=== PATIENT | female | born 1950 | race Two or more races ===

== ENCOUNTER → 2018-12-15 | Emergency (ER) | payer MEDICARE, OTHER ==
[~2018-12-15] VITALS: Ht 157.5 cm; Wt 78.5 kg
[~2018-12-15] MED LIST: ASPIRIN EC81 MG PO; DICLOFENAC SODI75 MG PO; ESTRACE0.5 MG VAGINAL; GLIPIZIDE ER10 MG PO; LISINOPRIL20 MG PO; METFORMIN HCL1000 MG PO; MULTI VITAMIN1 EACH PO; NORCO 5-325 TA1 EACH PO; NYSTATIN1 EAC1 TP; OMEGA 3 1,0001 EACH PO; SYSTANE GEL10 GM; VITAMIN D35000 UNIT PO
== END ==
LOC: ED 20:51
DX: M54.2 Cervicalgia (principal); E11.9 Type 2 diabetes mellitus without complications; Z79.84 Long term (current) use of oral hypoglycemic drugs; Z79.899 Other long term (current) drug therapy
CPT/HCPCS: 71045; 72125; 96372; 99284-25; J1885

== ENCOUNTER 2023-05-04 14:03 | Emergency (ER) | payer MEDICARE, OTHER ==
[~2023-05-04] VITALS: Ht 157.5 cm; Wt 76.2 kg
[2023-05-04 14:44] LABS: BASOPHILS 0.6 % (0-2); EOSINOPHILS 0.1 % (0-6); HEMATOCRIT 41.3 % (35.0-50.0); HEMOGLOBIN 13.7 g/dL (12.0-18.0); LYMPHOCYTES 4.1 % (24-44); MCH 30.4 (27-36); MCHC 33.1 g/dl (30-36); MCV 91.8 fl (81-99); NEUTROPHILS 90.2 % (39-80); PLATELET COUNT 218 K/uL (140-440); RDW 13.1 (10.5-15.0)
[2023-05-04 14:59] LABS: ALBUMIN 3.6 g/dL (3.4-5.0); ALBUMIN/GLOBULIN RATIO 0.92 (1.1-2.4); ANION GAP 20.6 (7-21); BILIRUBIN, TOTAL 0.9 ng/dL (0.2-1.0); BUN/CREATININE RATIO 16.54 (6.0-28.6); CALCIUM 9.3 mg/dL (8.5-10.1); CREATININE, SERUM 1.33 mg/dL (0.55-1.02); POTASSIUM 4.6 mmol/L (3.5-5.1); PROTEIN, TOTAL 7.5 g/dL (6.4-8.2)
[2023-05-04 15:28] LABS: BILIRUBIN, URINE NEGATIVE (negative); BLOOD/HGB, URINE LARGE (Negative); KETONE, URINE >=80 (Negative); LEUK ESTERASE, URINE TRACE (negative); NITRITE, URINE NEGATIVE (negative); PH, URINE 5.5 (5-7)
[2023-05-04 15:36] LABS: WHITE BLOOD CELLS, URINE >50 /HPF (0-5)
[2023-05-04 15:37] LABS: BACTERIA, URINE RARE /hpf (negative); CASTS, URINE NONE SEEN \\lpf; COLLECTION TYPE, URINE CLEAN CATCH; CRYSTALS, URINE NONE SEEN (0-1+); EPITHELIAL CELLS, URINE SQUAMOUS 1+ /lpf (0-1+); REFLEX CULTURE, URINE Yes (No)
[2023-05-04 16:57] LABS: LACTIC ACID, BLOOD 2.3 mmol/L (0.4-2.0)
[2023-05-04 17:20] LABS: INFLUENZA B NAA NEGATIVE (NEGATIVE); RESPIRATORY SYNCYTIAL VIR NAA NEGATIVE (NEGATIVE)
[2023-05-04 20:30] VITALS: BP 109/63
--- NOTE | 2023-05-04 22:29 | EKG ---
[facility] [address] [facility] [place] [address] Signed Sinus tachycardia Low voltage QRS Possible Inferior infarct , age undetermined Abnormal ECG No previous ECGs available Confirmed by Sasha Padilla MD () on 05/04/2023 10:29:49 PM Electronically Signed By: SASHA PADILLA MD 05/04/232228 PATIENT NAME: JASE ABURTONE CRISTIANA Electrocardiogram DATE OF : 52 PHYSICIAN: SASHA PADILLA MD REPORT #: [id number] REPORT IS CONFIDENTIAL AND NOT TO BE RELEASED WITHOUT AUTHORIZATION
== END 2023-05-04 20:31 | disposition short-term general hospital (02) ==
LOC: ED 14:03
PROVIDERS: Emergency Medicine
DX: N13.6 Pyonephrosis (principal); K82.8 Other specified diseases of gallbladder; E11.9 Type 2 diabetes mellitus without complications; Z79.899 Other long term (current) drug therapy; Z20.822 Contact with and (suspected) exposure to COVID-19
CPT/HCPCS: 36415; 74176; 80053; 81001; 83605; 83690; 85025; 87040; 87502; 93005; 93010; C9803; J0696; J1885; J2405; J7030; U0002

== ENCOUNTER 2023-08-09 07:50 | Day surgery (SDC) | payer MEDICARE, OTHER ==
[2023-08-03 15:14] VITALS: BP 125/67
[~2023-08-09] VITALS: Ht 157.5 cm; Wt 72.7 kg
[~2023-08-09 07:50] MED LIST changes: +BAYER CHEWABLE81 MG PO; +CEFAZOLIN SODIUM 2 GM/20 ML SYR IV SCH; +CEFDINIR300 MG PO; +HEParin SOD (PORCINE) 5,000 UNIT/0.5 ML SYR SUB-Q SCH; +IBLOOD GLUCOSE TEST STRIP 1 EA TEST VI PRN; +LACTATED RINGER'S 1,000 ML IV SCH; +LIDOCAINE HCL 1% 5 ML SDV INJ ONE; +ONDANSETRON ODT8 MG PO; +PYRIDIUM200 MG PO
[2023-08-09 08:29] VITALS: BP 126/61
[2023-08-09] MEDS ORDERED: ZYRTEC10 M3 PO (08:37)
[2023-08-09] MEDS ORDERED: propofoL 200 MG/20 ML VIAL ONE (08:41)
[2023-08-09] MEDS ORDERED: SUGAMMADEX SODIUM 200 MG/2 ML ML ONE (08:41)
[2023-08-09] MEDS ORDERED: SUCCINYLCHOLINE IN 0.9% NACL 200 MG/10 ML SYRINGE ONE (08:41)
[2023-08-09] MEDS ORDERED: ondansetron HCL 4 MG/2 ML VIAL ONE (08:41)
[2023-08-09] MEDS ORDERED: fentaNYL citrate 100 MCG/2 ML VIAL ONE (08:41)
[2023-08-09] MEDS ORDERED: ROCURONIUM BROMIDE 50 MG/5 ML SYR ONE (08:41)
[2023-08-09] MEDS ORDERED: DEXAMETHASONE SOD PHOS 4 MG/ML VIAL ONE (08:41)
[2023-08-09] MEDS ORDERED: ACETAMINOPHEN 1,000 MG/100 ML VIAL ONE (08:41)
[2023-08-09] MEDS ORDERED: LIDOCAINE HCL 2% 20 MG/ML VIAL INJ ONE (08:42)
[2023-08-09] MEDS ORDERED: LIDOCAINE HCL 2% 5 ML SDV ONE (08:42)
[2023-08-09] MEDS ORDERED: LACTATED RINGER'S 1,000 ML IV ONE (08:45)
[2023-08-09] MEDS ORDERED: SODIUM CHLORIDE 0.9% 60 ML IV ONE (09:09)
[2023-08-09] MEDS ORDERED: iopamidoL 30 ML VIAL ONE (09:09)
[2023-08-09] MEDS ORDERED: HYDROmorphone HCL 1 MG/ML SYR IV PRN (10:30)
[2023-08-09] MEDS ORDERED: ondansetron HCL 4 MG/2 ML VIAL IV PRN (10:30)
[2023-08-09] MEDS ORDERED: fentaNYL citrate 100 MCG/2 ML VIAL IV PRN (10:30)
[2023-08-09] MEDS ORDERED: NALOXONE HCL 0.4 MG SYR IV PRN (10:30)
[2023-08-09] MEDS ORDERED: IBLOOD GLUCOSE TEST STRIP 1 EA TEST VI PRN (10:30)
[2023-08-09] MEDS ORDERED: droPERidol 5 MG/2 ML VIAL IV PRN (10:30)
[2023-08-09] MEDS ORDERED: PROCHLORPERAZINE EDISYLATE 10 MG/2 ML VIAL IV PRN (10:30)
[2023-08-09] MEDS ORDERED: PHENYLEPHRINE HCL 10 MG/ML VIAL ONE (10:45)
[2023-08-09] MEDS ORDERED: MORPHINE SULFATE 10 MG/ML VIAL ONE (10:45)
[2023-08-09] MEDS ORDERED: KETOROLAC TROMETHAMINE 30 MG/ML VIAL ONE (10:55)
[2023-08-09] MEDS ORDERED: IBUPROFEN600 MG PO (11:40)
[2023-08-09] MEDS ORDERED: OXYCODON-ACETA1 EAC2 PO (11:41)
[2023-08-09] MEDS ORDERED: ACETAMINOPHEN500 MG PO (11:41)
--- NOTE | 2023-08-09 11:41 | NUR ---
08/09/23 1141 Sheets,Marycarmen 1116 PT ARRIVED TO PACU ON 6L VIA MASK, ORAL AIRWAY IN PLACE. CHIN LIFT USED TO MAINTAIN AIRWAY. VSS. 1121 PT WAKES TO TACTILE STIMULI AND ORAL AIRWAY REMOVED. PT RESTING WITH EYES OPEN. PT DENIES PAIN AND NAUSEA. 1126 O2 MASK REMOVED AND PLAN OF CARE DISCUSSED. PT DENEIS CONCERNS.
[2023-08-09] MEDS ORDERED: OXYCODONE/APAP 7.5/325 TAB PO PRN (11:45)
[2023-08-09] MEDS ORDERED: ACETAMINOPHEN 500 MG TAB PO PRN (11:45)
[2023-08-09] MEDS ORDERED: LACTATED RINGER'S 1,000 ML IV SCH (11:45)
[2023-08-09] MEDS ORDERED: IBUPROFEN 600 MG TAB PO PRN (11:45)
[2023-08-09 11:53] VITALS: BP 116/63
--- NOTE | 2023-08-09 11:57 | NUR ---
1150 PT CAME TO DAY SURGERY FROM PACU VIA STRECHER. PT AWAKE AND ORIENTED, PT BREATHING EQUAL AND UNLABORED. PT REPORTS 4/10 TOLERABLE PAIN. PT VITALS TAKEN. IV ASSESSED 1155 PT SITTING UP AND DRINKING SIPS OF WATER, AND ABLE TO EAT CRACKERS. PT REPORTS NO NAUSEA. AT BEDSIDE. PT AND FAMILY HAVE NO FURTHER QUESTIONS AT THIS TIME.
[2023-08-09 12:50] VITALS: BP 115/58
--- NOTE | 2023-08-09 13:38 | NUR ---
1330 PT AT TOLERABLE LEVEL OF PAIN. PT ABLE TO AMBULATE TO THE BATHROOM AND VOID 150 MLS. PT GETTING DRESSED WITH AT BEDSIDE. PT REPORTS NO NAUSEA.
[2023-08-09 13:49] VITALS: BP 139/61
--- NOTE | 2023-08-09 14:01 | NUR ---
1345 PT ABLE TO CHANGE ON OWN. PT PAIN AT A TOLERABLE LEVEL OF 4/10. PT REPORTS NO NAUSEA. VITALS TAKEN. DISCHARGE INSTRUCTIONS GONE OVER WITH AT BEDSIDE. PT AND FAMILY HAVE NO FURTHER QUESTIONS AT THIS TIME. IV DISCONTINUED. 1355 PT DISCHARGED FROM DAY SURGERY VIA WHEELCHAIR TO HUSBANDS CAR OUT AT FRONT OF HOSPTIAL.
--- NOTE | 2023-08-10 13:37 | OR ---
[facility] [address] [place], [place] [address] Signed DATE OF OPERATION: 08/09/2023 SURGEON: Torey Pagan MD PREOPERATIVE DIAGNOSIS: Chronic calculous cholecystitis with gallstone 4.5 cm. POSTOPERATIVE DIAGNOSIS: Chronic calculous cholecystitis with gallstone 4.5 cm. PROCEDURES: 1. Laparoscopic cholecystectomy with intraoperative cholangiogram. 2. Surgeon-directed fluoroscopy. ANESTHESIA: General endotracheal, Fernando Cosme CRNA and local 10 mL of 0.25% of Marcaine with epinephrine. INDICATION: This 73-year-old white woman is a patient of Dr. Suarez and here for consideration of cholecystectomy. She was noted previously to have gallstones, which involved a fair amount of vomiting and groin pain. A CT scan was performed confirming kidney stones, but additionally describing a large calcified gallstone. This measured approximately 4.4 cm. This was dated May 04, 2023. The patient has episodes of right upper abdominal pain highly suggestive of biliary colic. She is admitted at this time to undergo cholecystectomy for symptomatic gallstones. She understands the risk of bleeding, infection, bile duct injury, need for open procedure and of course failure to cure her symptoms. Understanding that, she wished to proceed. FINDINGS: The gallbladder was indeed chronically inflamed. There is gallstone. The gallbladder was excised without problem and the gallstone was found to be very dark, relatively oblong and about 2 inches (4.4 cm in size). Intraoperative cholangiogram was normal. There was no sign of hepatic abnormality and no other findings of concern. DESCRIPTION OF PROCEDURE: The patient was brought to the operating room, given a general endotracheal anesthetic. Preoperative antibiotic Ancef was given. Sequential compression device stockings were Electronically Signed By: TOREY PAGAN MD 08/10/23 1337 PATIENT NAME: TANIKA ABURTO OPERATIVE REPORT DATE OF : 52 REPORT #: [id number] PHYSICIAN: TOREY PAGAN MD PCP: SHELIA SUAREZ MD REPORT IS CONFIDENTIAL AND NOT TO BE RELEASED WITHOUT AUTHORIZATION [facility] [address] [place], [place] [address] Signed applied as well. The abdomen was prepared with a chlorhexidine solution and draped sterilely. An infraumbilical incision was made and using an open Geovanny cannula technique, the abdomen was entered and pneumoperitoneum was achieved to a level of 14 mmHg with carbon dioxide gas. Intra-abdominal inspection showed no sign of ascites or carcinomatosis. The liver was reasonably normal with only mild fatty infiltration. The gallbladder was chronically inflamed, but showed no sign of adhesions of the omentum or other problem. Three additional trocars were placed in usual configuration in the subxiphoid, right midclavicular, and right anterior axillary line. The gallbladder was elevated cephalad and retracted laterally. The large and bulky gallstone made grabbing the infundibulum slightly challenging and rearrangement of the graspers was used to better optimize exposure. Ultimately, good elevation of the gallbladder was noted. Using blunt and electrocautery dissection, the triangle of Calot was dissected free identifying well the cystic duct which was moderate in diameter. A clip was applied across the gallbladder cystic duct junction and a transverse choledochotomy was made in the cystic duct. Egress of clear bile was noted. Using the Taylor type cholangiocatheter intraoperative cholangiography was undertaken showing free flow of contrast in biliary tree with prompt emptying into the duodenum. Retrograde filling was not forthcoming and therefore morphine 4 mg was given IV and after a brief amount of time repeat cholangiogram performed showing good retrograde filling to the biliary tree with no sign of biliary anomaly or other abnormality. The catheter was removed and the cystic duct was triply clipped and divided. The gallbladder was then dissected free in a retrograde fashion using electrocautery. An entry into the gallbladder allowed for spillage of some bile, but it was not problematic. There was no spillage of stones or stone debris. The gallbladder once freed from the liver edge was and placed in an endobag and extracted through the infraumbilical port site, opened on the back table and found to have a large black oblong smooth gallstone at least 2 inches in length. The mucosa of the gallbladder showed no sign of neoplasm. Irrigation was undertaken in the subhepatic space. There was no sign of bile leak, bleeding, or other problems. The trocars were removed under direct visualization. Some cautery was required to a right upper quadrant 5 mm port, but hemostasis was ultimately secured. The infraumbilical fascial incision was reapproximated with interrupted 0 Vicryl suture. 10 mL of 0.25% Marcaine with epinephrine was injected locally. The skin was then closed with interrupted 3-0 Vicryl. Steri-Strips were applied. The patient tolerated the procedure well, was ultimately extubated and transferred to the recovery room in good condition having suffered no complication. Sponge, needle, and instrument counts reported as correct x3. Electronically Signed By: TOREY PAGAN MD 08/10/23 1337 PATIENT NAME: TANIKA ABURTO OPERATIVE REPORT DATE OF : 52 REPORT #: [id number] PHYSICIAN: TOREY PAGAN MD PCP: SHELIA SUAREZ MD REPORT IS CONFIDENTIAL AND NOT TO BE RELEASED WITHOUT AUTHORIZATION [address] [place] [address] Signed MD DANIEL Saores/FELY /[id number] cc: Sehlia Suarez MD Copies: SHELIA SUAREZ MD ~ Electronically Signed By: TOREY PAGAN MD 08/10/23 1337 PATIENT NAME: OSMANI BENJAMINTANIKAE OPERATIVE REPORT DATE OF : 52 REPORT #: [id number] PHYSICIAN: TOREY PAGAN MD PCP: SHELIA SUAREZ MD REPORT IS CONFIDENTIAL AND NOT TO BE RELEASED WITHOUT AUTHORIZATION
--- NOTE | 2023-08-11 16:28 | PATH ---
[facility] [address] [place], [place] [address] Signed SPECIMEN(S): A GALLBLADDER WITH STONE SPECIMEN SOURCE: A. GALLBLADDER WITH STONE CLINICAL HISTORY: Chronic cholecystitis and calculus FINAL PATHOLOGIC DIAGNOSIS: Gallbladder, cholecystectomy: - Chronic cholecystitis. - Cholelithiasis. - No evidence of neoplasia. K MICROSCOPIC EXAMINATION: Histologic sections of all submitted blocks are examined by light microscopy. These findings, together with the gross examination, support the pathologic diagnosis. GROSS DESCRIPTION: The specimen, labeled and designated "Whitley Love, gallbladder with stone," is received in formalin and consists of Specimen: Previously opened gallbladder. Dimensions: 6.5 x 4.5 x 0.3 cm. Serosa: Violaceous, smooth. Cystic Duct: Inked, unobstructed. Calculi: One dark green gallstones within the container that measure 5 cm in greatest dimension. Mucosa: Green and velvety. Wall thickness: 0.3 cm. Lymph node: No pericystic lymph nodes are grossly identified. Additional: None. Separator Operator sections are submitted in (A1). JS (under the direct supervision of a pathologist) The Gross Description was prepared using a voice recognition system. The report was reviewed for accuracy; however, sound-alike word errors, addition and/or deletions may occur. If there is any question about this report, please contact Client Services. ADDITIONAL NOTES: PATIENT NAME: TANIKA ABRUTO PATHOLOGY DATE OF : 52 REPORT #: [id number] PHYSICIAN: [facility] PCP: SHELIA PINEDA MD REPORT IS CONFIDENTIAL AND NOT TO BE RELEASED WITHOUT AUTHORIZATION [facility] [address] [facility] [place] [facility] [place] [address] Signed Immunohistochemical and/or in situ hybridization studies if performed in this case included appropriate positive controls that reacted as expected. This test was developed and its performance characteristics determined by [facility]. It has not been cleared or approved by the U.S. Food and Drug Administration. The FDA has determined that such clearance or approval is not necessary. This test is used for clinical purposes. It should not be regarded as investigational or for research. [facility] is certified under the Clinical Laboratory Improvement Amendments of 1988 (CLIA) as qualified to perform high complexity clinical laboratory testing. PERFORMING LABORATORY: Technical component was performed by [facility], [address] [place] [id number] (CLIA# [id number]). Professional interpretation was performed by [facility], [address] [place] [address] (CLIA#:[id number]). Diagnostician: Blayne Walls MD Pathologist Electronically Signed 08/11/2023 Copies: ~ PATIENT NAME: TANIKA ABURTO PATHOLOGY DATE OF : 52 REPORT #: [id number] PHYSICIAN: [facility] PCP: SHELIA PINEDA MD REPORT IS CONFIDENTIAL AND NOT TO BE RELEASED WITHOUT AUTHORIZATION
== END 2023-08-09 13:55 | disposition home or self-care (01) ==
LOC: DS 07:50
PROVIDERS: ATTEND Surgery
PROC: 0FT44ZZ Resection of Gallbladder, Percutaneous Endoscopic Approach (ICD-10-PCS; principal; 2023-08-09 09:30)
DX: K80.10 Calculus of gallbladder with chronic cholecystitis without obstruction (principal); E11.9 Type 2 diabetes mellitus without complications; I10 Essential (primary) hypertension
CPT/HCPCS: 00790; 74300; 88304; J0131; J0330; J0690; J1100; J1644; J1885; J2001; J2270; J2371; J2405; J2704; J3010; J3490; J7121; Q9967

== ENCOUNTER 2024-05-27 18:36 | Emergency (ER) | payer MEDICARE, OTHER ==
[~2024-05-27] VITALS: Ht 157.5 cm; Wt 78.0 kg
[~2024-05-27 18:36] MED LIST changes: +ACETAMINOPHEN500 MG PO; -CEFAZOLIN SODIUM 2 GM/20 ML SYR IV SCH; -HEParin SOD (PORCINE) 5,000 UNIT/0.5 ML SYR SUB-Q SCH; -IBLOOD GLUCOSE TEST STRIP 1 EA TEST VI PRN; +IBUPROFEN600 MG PO; -LACTATED RINGER'S 1,000 ML IV SCH; -LIDOCAINE HCL 1% 5 ML SDV INJ ONE; +OXYCODON-ACETA1 EAC2 PO; +ZYRTEC10 M3 PO
[2024-05-27] MEDS ORDERED: ondansetron HCL 4 MG/2 ML VIAL ONE (19:49)
[2024-05-27] MEDS ORDERED: SODIUM CHLORIDE 0.9% 500 ML IV ONE (20:00)
[2024-05-27] MEDS ORDERED: ondansetron HCL 4 MG/2 ML VIAL IV ONE (20:00)
[2024-05-27 20:01] LABS: BASOPHILS 0.5 % (0-2); EOSINOPHILS 1.3 % (0-6); HEMATOCRIT 43.8 % (35.0-50.0); HEMOGLOBIN 14.8 g/dL (12.0-18.0); LYMPHOCYTES 16.9 % (24-44); MCH 31.2 (27-36); MCHC 33.7 g/dl (30-36); MCV 92.6 fl (81-99); MONOCYTES 5.6 % (0-12); NEUTROPHILS 75.7 % (39-80); PLATELET COUNT 265 K/uL (140-440); RBC 4.73 M/ul (4.3-5.7); RDW 13.3 (10.5-15.0)
[2024-05-27] MEDS ORDERED: RYBELSUS7 MG PO (20:04)
[2024-05-27] MEDS ORDERED: METRONIDAZOLE500 MG PO (20:05)
[2024-05-27 20:17] LABS: ALBUMIN/GLOBULIN RATIO 0.89 (1.1-2.4); ANION GAP 19.1 (7-21); BILIRUBIN, TOTAL 0.7 ng/dL (0.2-1.0); BUN/CREATININE RATIO 11.81 (6.0-28.6); CALCIUM 9.8 mg/dL (8.5-10.1); CREATININE, SERUM 1.1 mg/dL (0.55-1.02); MAGNESIUM 1.5 mg/dL (1.8-2.4); POTASSIUM 4.1 mmol/L (3.5-5.1); PROTEIN, TOTAL 8.5 g/dL (6.4-8.2)
[2024-05-27] MEDS ORDERED: HYDROCODON-ACE1 EA10 PO (20:53)
[2024-05-27] MEDS ORDERED: ONDANSETRON ODT8 MG PO (20:53)
[2024-05-27] MEDS ORDERED: ONDANSETRON 4 MG HOME.PACK SL ONE (21:00)
[2024-05-27] MEDS ORDERED: HYDROCODONE BIT/ACETAMINOPHEN 5/325 MG 1 TAB HOME.PACK PO PRN (21:00)
[2024-05-27 21:11] VITALS: BP 131/66
== END 2024-05-27 21:10 | disposition home or self-care (01) ==
LOC: ED 18:36
PROVIDERS: Emergency Medicine
DX: R11.2 Nausea with vomiting, unspecified (principal); T37.8X5A Adverse effect of other specified systemic anti-infectives and antiparasitics, initial encounter; M25.511 Pain in right shoulder; E11.9 Type 2 diabetes mellitus without complications; Z88.2 Allergy status to sulfonamides; Z88.0 Allergy status to penicillin; Z88.1 Allergy status to other antibiotic agents; Z79.85 Long-term (current) use of injectable non-insulin antidiabetic drugs; Z79.84 Long term (current) use of oral hypoglycemic drugs; Z79.899 Other long term (current) drug therapy
CPT/HCPCS: 36415; 80053; 83735; 85025; 96361; 96374; 99284-25; A9270; J2405; J7040

== ENCOUNTER 2024-12-13 10:26 | Day surgery (SDC) | payer MEDICARE, OTHER ==
[~2024-12-13] VITALS: Ht 157.5 cm; Wt 75.0 kg
[~2024-12-13 10:26] MED LIST changes: +HYDROCODON-ACE1 EA10 PO; +IBLOOD GLUCOSE TEST STRIP 1 EA TEST VI PRN; +LACTATED RINGER'S 1,000 ML IV SCH; +LIDOCAINE HCL 1% 5 ML SDV INJ ONE; +METRONIDAZOLE500 MG PO; +MIDAZOLAM HCL 5 MG/5 ML VIAL IV PRN; +RYBELSUS7 MG PO; +fentaNYL citrate 100 MCG/2 ML VIAL IV PRN
[2024-12-13 11:02] VITALS: BP 120/60
[2024-12-13] MEDS ORDERED: MIDAZOLAM HCL 5 MG/5 ML VIAL ONE (11:38)
[2024-12-13] MEDS ORDERED: fentaNYL citrate 100 MCG/2 ML VIAL ONE (11:38)
--- NOTE | 2024-12-13 11:54 | NUR ---
Visited with Akira before her procedure. It was so good to see them and took the opportunity to get caught up with what is going on in their lives. Said a prayer of healing and comfort.
--- NOTE | 2024-12-13 12:57 | NUR ---
12/13/24 Raven Cardenas 2065-PATIENT ARRIVED TO PACU ON 2L NC RR EVEN PATIENT DROWSY DENIES PAIN OR NAUSEA. ABDOMEN SOFT. IVF INFUSING. SR HR 80'S. PATIENT PLACED ON RA. 1257-GLUCOSE CHECKED 162. PATIENT CLOSES EYES DOZES BACK TO SLEEP. RA 95% RR EVEN
[2024-12-13 13:37] VITALS: BP 106/58
--- NOTE | 2024-12-13 15:53 | OR ---
[facility] [address] [place], [place] [address] Signed DATE OF OPERATION: 12/13/2024 SURGEON: Torey Pagan MD PREOPERATIVE DIAGNOSES: 1. History of polyps 2013, known diverticulosis. 2. Persistent diarrhea, history of cholecystectomy. POSTOPERATIVE DIAGNOSES: 1. Extensive diverticular disease of sigmoid (difficult to pass). 2. Polyps x2, transverse colon and left colon, no evidence of colitis. PROCEDURES: Total colonoscopy to cecum with cold morcellation polypectomy x2 and biopsy of cecum. ANESTHESIA: Intravenous sedation, fentanyl 150 mcg, and Versed 6 mg. INDICATION: This 74-year-old white woman is a patient of Dr. Shelia Suarez. She is known to me from the past. Colonoscopy in 2013 did demonstrate polyps. Followup colonoscopy 2016 showed only diverticulosis. She has symptoms of diarrhea, which have been rather persistent since cholecystectomy performed. She has family history of colon cancer in a paternal grandfather. She is here for colonoscopy to better characterize the source for diarrhea, assess for polyps and so on. She understands the risk of bleeding, infection, and perforation, wished to proceed. FINDINGS: Intense diverticular changes were noted of the sigmoid and left colon. Passage through this area was prolonged, complicated, and difficult, but was accomplished safely, ultimately intubating the cecum fully. The cecum appeared normal. The biopsies were obtained to rule out occult colitis. There were two polyps seen, one in the transverse colon, the other in the left colon. Both were excised completely. Retroflexed view showed no other abnormality. DESCRIPTION OF PROCEDURE: The patient was brought to the endoscopy suite and placed in lateral decubitus position, given intravenous sedation to the point of slurred speech and nystagmus. Full cardiopulmonary monitoring was maintained. Digital examination was normal. Electronically Signed By: TOREY PAGAN MD 12/13/24 1553 PATIENT NAME: TANIKA ABURTO OPERATIVE REPORT DATE OF : 52 REPORT #: [id number] PHYSICIAN: TOREY PAGAN MD PCP: SHELIA SUAREZ MD REPORT IS CONFIDENTIAL AND NOT TO BE RELEASED WITHOUT AUTHORIZATION [facility] [address] [place], [place] [address] Signed An Olympus video colonoscope was passed in the rectum and manipulated into the sigmoid. Multiple diverticula were noted and passage through the area required a considerable amount of time and care as there was angulation deformity and numerous diverticula. Ultimately, the scope was passed through this area and passage to the cecum was rather straightforward thereafter. The cecum appeared normal as did the appendiceal orifice. Biopsies were taken of the cecum. The scope was withdrawn. Examination showed no sign of abnormality into the left transverse colon where a small polyp was noted. This was excised with cold morcellation technique. Similar such polyp was noted in the mid descending colon, also excised. Diverticula were once again seen in the sigmoid and left colon. The scope was withdrawn fully through there showing no sign of polyp or other abnormality. Retroflexed view of the rectum was normal. Scope was removed. The patient was taken to the recovery room in good condition. CONCLUDING DIAGNOSES: Likely her diarrhea is related to cholecystectomy in the past rather than underlying colitis or other problem. Numerous diverticula are noted. Metamucil may be helpful in that regard. She had two polyps. Would recommend repeat colonoscopy based on current guidelines in 10 years, sooner if symptoms should occur. We will prescribe colestipol 1 g p.o. 1-4 times a day for control of diarrhea. If she still has issues that persist, she will let me know. MD DANIEL Soares/FELY /[id number] cc: Dr. Suarez Copies: ~ Electronically Signed By: TOREY PAGAN MD 12/13/24 1553 PATIENT NAME: TANIKA ABURTO OPERATIVE REPORT DATE OF : 52 REPORT #: [id number] PHYSICIAN: TOREY PAGAN MD PCP: SHELIA SUAREZ MD REPORT IS CONFIDENTIAL AND NOT TO BE RELEASED WITHOUT AUTHORIZATION
--- NOTE | 2024-12-17 14:32 | PATH ---
[facility] [address] [place], [place] [address] Signed SPECIMEN(S): A CECUM COLON BIOPSY SPECIMEN(S): B ASCENDING COLON BIOPSY SPECIMEN(S): C TRANSVERSE COLON POLYP SPECIMEN(S): D DESCENDING COLON POLYP SPECIMEN SOURCE: A. CECUM COLON BIOPSY B. ASCENDING COLON BIOPSY C. TRANSVERSE COLON POLYP D. DESCENDING COLON POLYP CLINICAL HISTORY: Chronic diarrhea, history of polyp. Diverticulosis. Post-polyps x 2, diverticulosis A/B) biopsy, C/D) polyp FINAL PATHOLOGIC DIAGNOSIS: A. Cecum colon biopsy: - Benign colonic mucosa, negative for specific diagnostic abnormality. B. Ascending colon biopsy: - Benign colonic mucosa, negative for specific diagnostic abnormality. C. Transverse colon polyp: - Tubular adenoma (two fragments). D. Descending colon polyp: - Tubular adenoma (multiple fragments). JVR:clv MICROSCOPIC EXAMINATION: Histologic sections of all submitted blocks are examined by light microscopy. These findings, together with the gross examination, support the pathologic diagnosis. GROSS DESCRIPTION: A. The specimen, labeled and designated "Whitley, L, cecum colon biopsy," is received in formalin and consists of two bonilla soft tissue fragments, ranging from 0.3-0.4 cm. Entirely submitted in (A1). B. The specimen, labeled and designated "Whitley, L, ascending colon biopsy," is received in formalin and consists of two bonilla soft tissue fragments, ranging from 0.3-0.4 cm. Entirely submitted in (B1). C. The specimen, labeled and designated "Whitley, L, transverse colon polyp," is received in formalin and consists of three bonilla soft tissue fragments, ranging PATIENT NAME: TANIKA ABURTO PATHOLOGY DATE OF : 52 REPORT #: [id number] PHYSICIAN: ALVIN HAYNES PCP: SHELIA PINEDA MD REPORT IS CONFIDENTIAL AND NOT TO BE RELEASED WITHOUT AUTHORIZATION [facility] [address] [place], [place] [address] Signed from 0.2-0.3 cm. Entirely submitted in (C1). D. The specimen, labeled and designated "Whitley, L, descending colon polyp," is received in formalin and consists of six bonilla soft tissue fragments, ranging from 0.1-0.4 cm. Entirely submitted in (D1). AB (under the direct supervision of a pathologist) The Gross Description was prepared using a voice recognition system. The report was reviewed for accuracy; however, sound-alike word errors, addition and/or deletions may occur. If there is any question about this report, please contact Client Services. PERFORMING LABORATORY: Technical component was performed by [facility], [address] [place] [id number] (CLIA# [id number]). Professional interpretation was performed by [facility] - [facility], [address] [place] [id number] (CLIA#: [id number]). Diagnostician: Benjamín Harrell MD Pathologist Electronically Signed 12/17/2024 Copies: ~ PATIENT NAME: TANIKA ABURTO PATHOLOGY DATE OF : 52 REPORT #: [id number] PHYSICIAN: [facility] PATH[facility] PCP: SHELIA PINEDA MD REPORT IS CONFIDENTIAL AND NOT TO BE RELEASED WITHOUT AUTHORIZATION
== END 2024-12-13 13:40 | disposition home or self-care (01) ==
LOC: DS 10:26
PROVIDERS: ATTEND Surgery
PROC: 0DBL8ZX Excision of Transverse Colon, Via Natural or Artificial Opening Endoscopic, Diagnostic (ICD-10-PCS; 2024-12-13)
PROC: 0DBM8ZX Excision of Descending Colon, Via Natural or Artificial Opening Endoscopic, Diagnostic (ICD-10-PCS; 2024-12-13)
PROC: 0DBK8ZX Excision of Ascending Colon, Via Natural or Artificial Opening Endoscopic, Diagnostic (ICD-10-PCS; 2024-12-13)
PROC: 0DBH8ZX Excision of Cecum, Via Natural or Artificial Opening Endoscopic, Diagnostic (ICD-10-PCS; principal; 2024-12-13 11:20)
DX: K52.9 Noninfective gastroenteritis and colitis, unspecified (principal); D12.4 Benign neoplasm of descending colon; D12.3 Benign neoplasm of transverse colon; K57.30 Diverticulosis of large intestine without perforation or abscess without bleeding; E11.9 Type 2 diabetes mellitus without complications; K21.9 Gastro-esophageal reflux disease without esophagitis; I10 Essential (primary) hypertension; Z80.0 Family history of malignant neoplasm of digestive organs; Z79.84 Long term (current) use of oral hypoglycemic drugs; Z79.899 Other long term (current) drug therapy; Z88.2 Allergy status to sulfonamides
CPT/HCPCS: 99153; G0500; J2250; J3010; J7121